=== PATIENT | female | born 1965 | race Caucasian/White ===

== ENCOUNTER 2016-09-27 09:33 | Emergency (ER) | payer BC ==
[~2016-09-27] VITALS: Ht 172.7 cm; Wt 100.0 kg
[2016-09-27 09:36] VITALS: TEMP 36.6; Ht 172.7 cm; Wt 100.0 kg
[2016-09-27] MEDS ORDERED: IBUP-103 PO (09:50)
--- NOTE | 2016-09-27 10:11 | EMERGENCY ROOM VISIT NOTE ---
History Report prepared by Marj: Hollis Amaro Under the Supervision of: Dr. Munir Ovalle M.D. First contact with patient: 09:57 Chief Complaint: FOOT PAIN Stated Complaint: FALL History of Present Illness The patient is a 51 year old female who presents to the Emergency Room with complaints of sudden right foot pain starting prior to arrival. The patient states that she tripped earlier, and her foot stayed planted, and it twisted. The patient states that it hurts mostly on the lateral aspect of the foot. The patient denies using any blood thinners or recent antibiotics. She additionally states that she takes Advil every day. Source of History: patient Onset: prior to arrival Position: foot (right) Timing: other (sudden) Review of Systems See HPI for pertinent positives & negatives. A total of 6 systems reviewed and were otherwise negative. Past Medical & Surgical Medical Problems: (1) Ovarian cyst Family History Diabetes mellitus FHx: cancer Hypertension Social History Smoking Status: Never Smoker Marital Status: Housing Status: lives with family Occupation Status: employed Current/Historical Medications Scheduled Ibuprofen Tab (Advil), 200 MG PO DAILY Allergies Coded Allergies: No Known Allergies (Verified , 09/27/16) Physical Exam Vital Signs Date Time Temp Pulse Resp B/P Pulse Ox O2 Delivery O2 Flow Rate FiO2 09/27/16 11:11 88 18 175/95 100 09/27/16 09:36 36.6 92 18 181/102 99 Room Air Physical Exam GENERAL: Patient is well appearing in minimal distress HEENT: No acute trauma, normocephalic atraumatic, mucous membranes moist, no nasal congestion, no scleral icterus. NECK: No stridor, no adenopathy, no meningismus, trachea is midline. LUNGS: No dyspnea. Clear to auscultation and equal bilaterally. No wheeze, no rhonchi. HEART: Regular rate and rhythm. No murmurs, rubs, gallops appreciated. EXTREMITIES: Tenderness to palpation over the proximal lateral right foot extending to base of right lateral malleolus. Pain with inversion of the ankle. NEUROLOGIC: Alert and oriented, no acute motor or sensory deficits, no focal weakness, cranial nerves grossly intact. SKIN: No rash, no jaundice, no diaphoresis. Medical Decision & Procedures ER Provider Diagnostic Interpretation: X ray results are stated below per my interpretation and the radiologist's interpretation. RIGHT FOOT MIN 3 VIEWS ROUTINE CLINICAL HISTORY: Right foot pain status post trauma COMPARISON: None. DISCUSSION: No fractures or dislocations are visualized. There is no evidence for soft tissue swelling. IMPRESSION: No fractures identified. Electronically signed by: Wiley Middleton M.D. 09/27/2016 10:43 AM Dictated Date/Time: 09/27/2016 10:42 AM RIGHT ANKLE MIN 3 VIEWS ROUTINE CLINICAL HISTORY: Right ankle pain status post trauma COMPARISON: None. DISCUSSION: No acute fractures are visualized. The ankle mortise appears intact. There is a corticated bony density adjacent to medial malleolar tip. This is felt to be old. There is no evidence for soft tissue swelling. There is a tiny Achilles insertional spur IMPRESSION: No acute fractures or dislocations identified. Electronically signed by: Wiley Middleton M.D. 09/27/2016 10:42 AM Dictated Date/Time: 09/27/2016 10:41 AM ED Course 0957: The patient was evaluated in room B11. A complete history and physical exam was performed. 1103: Reevaluated the patient. Discussed results and discharge instructions: She verbalized understanding and agreement. The patient is ready for discharge. Medical Decision Differential: Fracture, Dislocation, Sprain 51 yr old female arrives with complaint of right lateral ankle/foot pain. TTP. Consistent with inversion injury resulting in ligamentous injury without fracture (xray clear). No other injuries and knee stable. Ankle brace, crutches, RICE. Follow up with PCP. RTED if worsening or other concerns. Impression Primary Impression: Right ankle sprain Scribe Attestation The scribe's documentation has been prepared under my direction and personally reviewed by me in its entirety. I confirm that the note above accurately reflects all work, treatment, procedures, and medical decision making performed by me. Departure Information Dispostion Home / Self-Care Referrals Benson England M.D. (PCP) Forms HOME CARE DOCUMENTATION FORM, IMPORTANT VISIT INFORMATION Patient Instructions Ankle Sprain, My [facility] Problem Qualifiers Primary Impression: Right ankle sprain Encounter type: initial encounter Involved ligament of ankle: unspecified ligament Qualified Codes: S93.401A - Sprain of unspecified ligament of right ankle, initial encounter
--- NOTE | 2016-09-27 10:43 | DIAGNOSTIC IMAGING REPORT ---
RIGHT ANKLE MIN 3 VIEWS ROUTINE CLINICAL HISTORY: Right ankle pain status post trauma COMPARISON: None. DISCUSSION: No acute fractures are visualized. The ankle mortise appears intact. There is a corticated bony density adjacent to medial malleolar tip. This is felt to be old. There is no evidence for soft tissue swelling. There is a tiny Achilles insertional spur IMPRESSION: No acute fractures or dislocations identified. Electronically signed by: Wiley Middleton M.D. 09/27/2016 10:42 AM Dictated Date/Time: 09/27/2016 10:41 AM
--- NOTE | 2016-09-27 10:44 | DIAGNOSTIC IMAGING REPORT ---
RIGHT FOOT MIN 3 VIEWS ROUTINE CLINICAL HISTORY: Right foot pain status post trauma COMPARISON: None. DISCUSSION: No fractures or dislocations are visualized. There is no evidence for soft tissue swelling. IMPRESSION: No fractures identified. Electronically signed by: Wiley Middleton M.D. 09/27/2016 10:43 AM Dictated Date/Time: 09/27/2016 10:42 AM
[2016-09-27 11:11] VITALS: BP 175/95; PULSE 88; O2SAT 100
== END 2016-09-27 11:13 | disposition home or self-care (01) ==
LOC: C.EDB 09:35
DX: S93.401A Sprain of unspecified ligament of right ankle, initial encounter (principal); X50.1XXA Overexertion from prolonged static or awkward postures, initial encounter; W18.40XA Slipping, tripping and stumbling without falling, unspecified, initial encounter; Z83.3 Family history of diabetes mellitus; Z82.49 Family history of ischemic heart disease and other diseases of the circulatory system

== ENCOUNTER 2017-11-04 11:25 | Observation (INO) | payer BC, OTHER ==
[~2017-11-04] VITALS: Ht 172.7 cm; Wt 100.4 kg
[~2017-11-04 11:25] MED LIST: IBUP-103 PO
[2017-11-04] MEDS ORDERED: DOXY25TA8 PO (11:50)
[2017-11-04 12:11] LABS: BASO % 0.5 %; BASO ABS # 0.04 K/uL (0-0.2); EOS % 2.1 %; EOS ABS # 0.16 K/uL (0-0.5); HEMATOCRIT 45.2 % (37-47); HEMOGLOBIN 16.2 g/dL (12.0-16.0); IG# 0.03 K/uL (0.00-0.02); LYMPH % 22.7 %; LYMPH ABS # 1.71 K/uL (1.2-3.4); MEAN CELL VOLUME 86.6 fL (80-100); MEAN CORPUSCULAR HGB CONC 35.8 g/dl (32-36); MEAN PLATELET VOLUME 10.2 fL (7.4-10.4); MONO % 9.8 %; MONO ABS # 0.74 K/uL (0.11-0.59); NEUT % 64.5 %; NEUT ABS # 4.85 K/uL (1.4-6.5); PLATELET COUNT 243 K/uL (130-400); RED CELL DISTRIBUTION WIDTH CV 12.2 % (11.5-14.5); WHITE BLOOD COUNT 7.53 K/uL (4.8-10.8)
[2017-11-04 12:23] LABS: ALBUMIN 4.2 gm/dl (3.4-5.0); ALT/SGPT 124 U/L (12-78); AST/SGOT 81 U/L (15-37); BLOOD UREA NITROGEN 15 mg/dl (7-18); CALCIUM 9.3 mg/dl (8.5-10.1); CARBON DIOXIDE 26 mmol/L (21-32); GLUCOSE 243 mg/dl (70-99); LIPASE 276 U/L (73-393); POTASSIUM 4.1 mmol/L (3.5-5.1); PTT PATIENT 26.1 SECONDS (21.0-31.0); SODIUM 138 mmol/L (136-145)
[2017-11-04 12:28] LABS: ALKALINE PHOSPHATASE 126 U/L (45-117); CKMB 5.8 ng/ml (0.5-3.6); TOTAL PROTEIN 8.2 gm/dl (6.4-8.2)
--- NOTE | 2017-11-04 12:38 | EMERGENCY ROOM VISIT NOTE ---
History Report prepared by Marj: Tamiko Byrne Under the Supervision of: Yue GarciaO. First contact with patient: 11:53 Chief Complaint: CHEST PAIN Stated Complaint: CHEST PAIN, LIGHTHEADED, PAIN BETWEEN SHOULDER AMBREEN Nursing Triage Summary: pt states chest pain upon standing left side radiating to left shoulder and left side of neck, pt states no diaphoresis or nausea noted at the time, pt denies chest pain at this time, states took ibuprofen with her lunch, at approx 1000. Pt states hx injury to left shoulder, denies cardiac hx. 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 Her pain radiated across her left shoulder, into her left shoulder blade, into her neck and back. She states that it eventually settled in between shoulder blades. Her pain lasted for about 20 minutes and then resolved on its own. Nothing made the pain worse. She sat down and states that eventually the pain resolved. She felt lightheaded while she was experiencing pain. The patient denies any current pain. She has never experienced symptoms like this before. The patient denies shortness of breath, nausea, vomiting, and abdominal pain. She denies any personal or family history of blood clots. She denies any recent travel. She denies pain or swelling in her legs. She does report that she has been under a lot of stress lately due to a recent family . She takes ibuprofen daily for arthritis. 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 Review of Systems See HPI for pertinent positives & negatives. A total of 10 systems reviewed and were otherwise negative. Past Medical & Surgical Medical Problems: (1) Abnormal liver function test (2) Ovarian cyst Surgical Problems: (1) H/O ovarian cystectomy Family History Diabetes mellitus FHx: cancer Hypertension Social History Smoking Status: Former Smoker Marital Status: Housing Status: lives with family Occupation Status: employed Current/Historical Medications Scheduled Aspirin (Aspirin EC Low Dose), 81 MG PO QAM Atorvastatin (Lipitor), 10 MG PO QAM Ibuprofen Tab (Advil), 200-400 MG PO BID Lisinopril (Zestril), 10 MG PO QAM Metformin HCl (Metformin HCl), 1 TAB OR DAILY Scheduled PRN Doxylamine Succinate (Sleep) (Unisom), 25 MG PO HS PRN for Insomnia Durable Medical Equipment Blood Glucose Monitoring Suppl (Blood Glucose Monitoring), UNIT Glucostix Blood Test Strips (RuffWire Control), UNIT Allergies Coded Allergies: No Known Allergies (Verified , 11/04/17) Physical Exam Vital Signs Date Time Temp Pulse Resp B/P (MAP) Pulse Ox O2 Delivery O2 Flow Rate FiO2 11/04/17 14:02 99 16 171/96 96 11/04/17 12:23 92 11/04/17 11:59 97 Room Air 11/04/17 11:46 97 Room Air 11/04/17 11:30 36.6 99 18 165/91 97 Room Air 11/04/17 11:30 98 Room Air Physical Exam GENERAL: Patient is awake, alert, and in no acute distress. Patient is resting comfortably and showing no signs of anxiety EYES: The conjunctivae are clear. The pupils are round and reactive. EARS, NOSE, MOUTH AND THROAT: The nose is without any evidence of any deformity. Mucous membranes are moist tongue is midline NECK: The neck is nontender and supple. RESPIRATORY: Normal respiratory effort is noted there is no evidence of wheezing rhonchi or rales CARDIOVASCULAR: Regular rate and rhythm noted there no murmurs rubs or gallops normal S1 normal S2 GASTROINTESTINAL: The abdomen is soft. Bowel sounds are present in all quadrants. Abdomen is nontender MUSCULOSKELETAL/EXTREMITIES: There is no evidence of gross deformity full range of motion is noted in the hips and shoulders SKIN: There is no obvious evidence of any rash. There are no petechiae, pallor or cyanosis noted. NEUROLOGIC: Patient is awake alert and oriented x3 Medical Decision & Procedures ER Provider Diagnostic Interpretation: Radiology results as stated below per my review and radiologist interpretation: CHEST ONE VIEW PORTABLE CLINICAL HISTORY: Atypical chest pain COMPARISON STUDY: No previous studies for comparison. FINDINGS: The cardiac and mediastinal contours are normal. There is no evidence of focal pulmonary consolidation. There is no evidence of failure. No pleural effusions are visualized.[ IMPRESSION: No active disease in the chest. Electronically signed by: Wiley Middleton M.D. 11/04/2017 12:57 PM Dictated Date/Time: 11/04/2017 12:57 PM Laboratory Results Test 11/04/17 11:50 Immature Granulocyte % (Auto) 0.4 % White Blood Count 7.53 K/uL (4.8-10.8) Red Blood Count 5.22 M/uL (4.2-5.4) Hemoglobin 16.2 g/dL (12.0-16.0) Hematocrit 45.2 % (37-47) Mean Corpuscular Volume 86.6 fL (80-100) Mean Corpuscular Hemoglobin 31.0 pg (25-34) Mean Corpuscular Hemoglobin Concent 35.8 g/dl (32-36) Platelet Count 243 K/uL (130-400) Mean Platelet Volume 10.2 fL (7.4-10.4) Neutrophils (%) (Auto) 64.5 % Lymphocytes (%) (Auto) 22.7 % Monocytes (%) (Auto) 9.8 % Eosinophils (%) (Auto) 2.1 % Basophils (%) (Auto) 0.5 % Neutrophils # (Auto) 4.85 K/uL (1.4-6.5) Lymphocytes # (Auto) 1.71 K/uL (1.2-3.4) Monocytes # (Auto) 0.74 K/uL (0.11-0.59) Eosinophils # (Auto) 0.16 K/uL (0-0.5) Basophils # (Auto) 0.04 K/uL (0-0.2) Immature Granulocyte # (Auto) 0.03 K/uL (0.00-0.02) Prothrombin Time 10.5 SECONDS (9.0-12.0) Prothromb Time International Ratio 1.0 (0.9-1.1) Activated Partial Thromboplast Time 26.1 SECONDS (21.0-31.0) Partial Thromboplastin Ratio 1.0 Estimated Average Glucose 189 mg/dl Hemoglobin A1c 8.2 % (4.5-5.6) Magnesium Level 2.3 mg/dl (1.8-2.4) Direct Bilirubin 0.1 mg/dl (0-0.2) Total Creatine Kinase 377 U/L (26-192) Creatine Kinase MB 5.8 ng/ml (0.5-3.6) Creatine Kinase MB Ratio 1.5 (0-3.0) Lipase 276 U/L (73-393) Laboratory results per my review. ECG Per My Interpretation Indication: chest pain Rate (beats per minute): 106 Rhythm: sinus tachycardia Findings: ST depression (diffuse), other (no PVCs) Comparison ECG Date: 10/12/07 Change: findings are new. ED Course 1153: The patient was evaluated in room B2. A complete history and physical examination were performed. 1325: I reassessed the patient at this time. She is feeling better and resting comfortably. I discussed the results and treatment plan with the patient. I answered all pertaining questions that she had. She expressed understanding and verbalized agreement. 1339: I spoke with JEREMIAH Estrada. We discussed the case. The patient will be evaluated by the [facility] for further management. Medical Decision Prior records/ancillary studies reviewed. Triage Nursing notes reviewed. The patient's history was concerning for chest pain. Differential diagnosis: Etiologies such as cardiac ischemia, aortic dissection, pulmonary embolism, pneumonia, pneumothorax, musculoskeletal, infections, pericarditis, myocarditis , esophageal rupture, gastrointestinal, as well as others were entertained. The patient is a 52-year-old female who presented to the emergency department for an evaluation of chest discomfort. The patient describes chest discomfort which appeared to be in the left side of her chest. She noticed some radiation to the shoulder but also had some history of shoulder musculoskeletal pain. The patient was found to have an abnormal EKG with diffuse ST segment abnormalities. Her initial cardiac biomarkers were negative. I discussed patient's laboratory and radiographic studies with her. Because of her EKG findings I discussed her [facility] They have agreed to evaluate the patient in the emergency department for further management and disposition. Medication Reconcilliation Current Medication List: was personally reviewed by me Blood Pressure Screening Patient's blood pressure: Elevated blood pressure Blood pressure disposition: Referred to PCP Consults Time Called: 1332 Consulting Physician: JEREMIAH Estrada Returned Call: [phone] I spoke with JEREMIAH Estrada. We discussed the case. The patient will be evaluated by the [facility] for further management. Impression Primary Impression: Chest pain Additional Impression: Abnormal ECG Scribe Attestation The scribe's documentation has been prepared under my direction and personally reviewed by me in its entirety. I confirm that the note above accurately reflects all work, treatment, procedures, and medical decision making performed by me. Departure Information Dispostion Being Evaluated By Hospitalist Prescriptions Glucostix Blood Test Strips (Onetouch Ultra Control) 1 Ea Strp UNIT, #30 Prov: Hayder Sinha M.D. 11/05/17 Blood Glucose Monitoring Suppl (BLOOD GLUCOSE MONITORING) 1 Kit Kit UNIT, #1 Prov: Hayder Sinha M.D. 11/05/17 Metformin HCl (Metformin HCl) 500 Mg Tab 1 TAB OR DAILY for 30 Days, #30 TAB Prov: Hayder Sinha M.D. 11/05/17 Aspirin (Aspirin EC Low Dose) 81 Mg Ectab 81 MG PO QAM for 30 Days, #30 TAB Prov: Hayder Sinha M.D. 11/05/17 Lisinopril (Zestril) 10 Mg Tab 10 MG PO QAM for 30 Days, #30 TAB Prov: Hayder Sinha M.D. 11/05/17 Atorvastatin (LIPITOR) 10 Mg Tab 10 MG PO QAM for 30 Days, #30 TAB Prov: Hayder Sinha M.D. 11/05/17 Referrals Benson England M.D. (PCP) Patient Instructions My [facility] Problem Qualifiers Primary Impression: Chest pain Chest pain type: unspecified Qualified Codes: R07.9 - Chest pain, unspecified
--- NOTE | 2017-11-04 12:58 | DIAGNOSTIC IMAGING REPORT ---
CHEST ONE VIEW PORTABLE CLINICAL HISTORY: Atypical chest pain COMPARISON STUDY: No previous studies for comparison. FINDINGS: The cardiac and mediastinal contours are normal. There is no evidence of focal pulmonary consolidation. There is no evidence of failure. No pleural effusions are visualized.[ IMPRESSION: No active disease in the chest. Electronically signed by: Wiley Middleton M.D. 11/04/2017 12:57 PM Dictated Date/Time: 11/04/2017 12:57 PM
[2017-11-04] MEDS ORDERED: ONDANSETRON INJ 2 MG/ML 2 ML VIAL IV PRN (14:15)
[2017-11-04] MEDS ORDERED: ACETAMINOPHEN 325 MG TAB PO PRN (14:15)
[2017-11-04] MEDS ORDERED: NITROGLYCERIN 0.4 MG SL PER TAB CHARGE SL PRN (14:15)
[2017-11-04] MEDS ORDERED: ASPIRIN 325 MG ECTAB PO ONE (14:15)
[2017-11-04 14:16] VITALS: O2SAT 96; BMI 33.9
[2017-11-04 14:22] LABS: HEMOGLOBIN A1C 8.2 % (4.5-5.6)
[2017-11-04] MEDS ORDERED: GLUCOSE 40% GEL 15 GM TUBE PO PRN (14:30)
[2017-11-04] MEDS ORDERED: GLUCAGON FOR INJ 1 MG VIAL SQ PRN (14:30)
[2017-11-04] MEDS ORDERED: DEXTROSE 50% 50 ML SYR IV PRN (14:30)
[2017-11-04] MEDS ORDERED: GLUCOSE 10 TABS/TUBE PO PRN (14:30)
[2017-11-04 15:12] VITALS: O2SAT 96
[2017-11-04] MEDS ORDERED: IV FLUIDS COMPLETED PRN (15:15)
--- NOTE | 2017-11-04 15:21 | DIAGNOSTIC IMAGING REPORT ---
GALLBLADDER-ABD LIMITED CLINICAL HISTORY: 52 years-old Female presenting with elevated LFTs. TECHNIQUE: Real-time grayscale and limited color Doppler ultrasound imaging of the abdomen limited to the right upper quadrant was performed. COMPARISON: None. FINDINGS: Pancreas: Visualized portions of the pancreatic head and body normal. Liver: Markedly hyperechogenic parenchyma with obscuration of the right hemidiaphragm, likely indicating marked hepatic steatosis. The liver measures 18.7 cm in maximal sagittal dimension. No sonographic evidence of hepatic mass. Main portal vein patent with normal directional flow. Biliary: No intrahepatic biliary ductal dilatation. Common bile duct measures up to 5 mm in diameter. Gallbladder: No evidence of gallstones, gallbladder wall thickening, gallbladder distention, or pericholecystic fluid or inflammatory change. Right kidney: Normal in appearance. No hydronephrosis. Ascites: None. Other: None. IMPRESSION: 1. Hepatic steatosis. Correlate with liver function tests to exclude steatohepatitis as a cause for abdominal pain. 2. No cholelithiasis or biliary ductal dilatation. Electronically signed by: Vamshi Douglas M.D. 11/04/2017 3:20 PM Dictated Date/Time: 11/04/2017 3:19 PM
[2017-11-04 15:22] VITALS: BP 175/98; PULSE 87; TEMP 36.9; O2SAT 98
--- NOTE | 2017-11-04 15:30 | History and Physical ---
History & Physical Date & Time of Service: Nov 04, 2017 ~ 13:30 Chief Complaint: Chest pain Primary Care Physician: Benson England M.D. History of Present Illness 52-year-old female who presents to the ED with a chief complaint of chest pain. Patient reports she was at work whenever she bent over to get something from under the sink and she developed sudden onset of left-sided chest pain with radiation into the left shoulder and in between her shoulder blades. She describes the pain as an uncomfortable ache. She rates the pain as a 6/10. She also had associated lightheadedness. Symptoms lasted for approximately 30 minutes and resolve on their own. She denies any associated diaphoresis, shortness of breath, or nausea. No lower extremity edema or orthopnea. Patient does report under being a lot of stress recently due to the unexpected of her [id number]. Otherwise patient has been feeling well recently. She denies abdominal pain, vomiting, and diarrhea. No dizziness or syncopal events. She denies fever and chills. No urinary symptoms. In the ED, patient' s initial troponin is negative and EKG shows less than [address] depressions in the anterior and lateral leads. Blood glucose is found to be elevated with an A1c of 8.2. Past Medical/Surgical History Medical Problems: (1) Abnormal liver function test Status: Chronic Surgical Problems: (1) H/O ovarian cystectomy Status: Chronic Family History FH: atrial fibrillation FATHER FH: diabetes mellitus FATHER FH: lung cancer FATHER FH: stomach cancer MOTHER Social History Smoking Status: Never Smoker Alcohol Use: occasionally Marital Status: Immunizations History of Tetanus Vaccine?: Yes Tetanus Immunization Date: Jan 26, 2008 Allergies Coded Allergies: No Known Allergies (Verified , 11/04/17) Home Medications Scheduled Ibuprofen Tab (Advil), 200-400 MG PO BID Scheduled PRN Doxylamine Succinate (Sleep) (Unisom), 25 MG PO HS PRN for Insomnia Review of Systems ROS per HPI, all other systems reviewed and negative Physical Exam Vital Signs Date Time Temp Pulse Resp B/P (MAP) Pulse Ox O2 Delivery O2 Flow Rate FiO2 11/04/17 14:16 96 Room Air 11/04/17 14:02 99 16 171/96 96 11/04/17 12:23 92 11/04/17 11:59 97 Room Air 11/04/17 11:46 97 Room Air 11/04/17 11:30 36.6 99 18 165/91 97 Room Air 11/04/17 11:30 98 Room Air General Appearance: WD/WN, no apparent distress Head: normocephalic, atraumatic Eyes: normal inspection, EOMI, sclerae normal ENT: hearing grossly normal, + pertinent finding (Mucous membranes moist) Neck: supple, no JVD, trachea midline Respiratory/Chest: lungs clear, normal breath sounds, no respiratory distress Cardiovascular: regular rate, rhythm, no edema, normal peripheral pulses Abdomen/GI: normal bowel sounds, non tender, soft, no organomegaly Extremities/Musculoskelatal: normal inspection, no calf tenderness, normal capillary refill Neurologic/Psych: no motor/sensory deficits, alert, normal mood/affect, oriented x 3 Skin: normal color, warm/dry Diagnostics Laboratory Results Results Past 24 Hours Test 11/04/17 11:50 Range/Units White Blood Count 7.53 4.8-10.8 K/uL Red Blood Count 5.22 4.2-5.4 M/uL Hemoglobin 16.2 12.0-16.0 g/dL Hematocrit 45.2 37-47 % Mean Corpuscular Volume 86.6 80-100 fL Mean Corpuscular Hemoglobin 31.0 25-34 pg Mean Corpuscular Hemoglobin Concent 35.8 32-36 g/dl Platelet Count 243 130-400 K/uL Mean Platelet Volume 10.2 7.4-10.4 fL Neutrophils (%) (Auto) 64.5 % Lymphocytes (%) (Auto) 22.7 % Monocytes (%) (Auto) 9.8 % Eosinophils (%) (Auto) 2.1 % Basophils (%) (Auto) 0.5 % Neutrophils # (Auto) 4.85 1.4-6.5 K/uL Lymphocytes # (Auto) 1.71 1.2-3.4 K/uL Monocytes # (Auto) 0.74 0.11-0.59 K/uL Eosinophils # (Auto) 0.16 0-0.5 K/uL Basophils # (Auto) 0.04 0-0.2 K/uL RDW Standard Deviation 39.0 36.4-46.3 fL RDW Coefficient of Variation 12.2 11.5-14.5 % Immature Granulocyte % (Auto) 0.4 % Immature Granulocyte # (Auto) 0.03 0.00-0.02 K/uL Prothrombin Time 10.5 9.0-12.0 SECONDS Prothromb Time International Ratio 1.0 0.9-1.1 Activated Partial Thromboplast Time 26.1 21.0-31.0 SECONDS Partial Thromboplastin Ratio 1.0 Sodium Level 138 136-145 mmol/L Potassium Level 4.1 3.5-5.1 mmol/L Chloride Level 104 98-107 mmol/L Carbon Dioxide Level 26 21-32 mmol/L Anion Gap 8.0 3-11 mmol/L Blood Urea Nitrogen 15 7-18 mg/dl Creatinine 1.00 0.60-1.20 mg/dl Est Creatinine Clear Calc Drug Dose 81.1 ml/min Estimated GFR () 75.0 Estimated GFR (Non- 64.7 BUN/Creatinine Ratio 15.3 10-20 Random Glucose 243 70-99 mg/dl Estimated Average Glucose 189 mg/dl Hemoglobin A1c 8.2 4.5-5.6 % Calcium Level 9.3 8.5-10.1 mg/dl Magnesium Level 2.3 1.8-2.4 mg/dl Total Bilirubin 0.4 0.2-1 mg/dl Direct Bilirubin 0.1 0-0.2 mg/dl Aspartate Amino Transf (AST/SGOT) 81 15-37 U/L Alanine Aminotransferase (ALT/SGPT) 124 12-78 U/L Alkaline Phosphatase 126 45-117 U/L Total Creatine Kinase 377 26-192 U/L Creatine Kinase MB 5.8 0.5-3.6 ng/ml Creatine Kinase MB Ratio 1.5 0-3.0 Troponin I < 0.015 0-0.045 ng/ml Total Protein 8.2 6.4-8.2 gm/dl Albumin 4.2 3.4-5.0 gm/dl Lipase 276 73-393 U/L Diagnostic Radiology CXR IMPRESSION: No active disease in the chest. Impression Assessment and Plan CHEST PAIN -Admit to telemetry -Patient presenting with sudden onset of left-sided chest pain with radiation into the left shoulder and between her shoulder blades -Initial troponin negative, EKG shows less than [address] depression in the anterior and lateral leads -Risk factors: Overweight, newly diagnosed diabetic, possible hypertension -Give full dose aspirin now followed by 81 mg daily -Check lipid panel in morning -As needed nitro and EKG with further episodes of chest pain -Will continue to cycle cardiac enzymes and if negative will obtain stress test in the morning -Also consider stress/anxiety and GI as possible etiologies for discomfort NEWLY DIAGNOSED DIABETES -Hgb A1c 8.2 -NovoLog per protocol while hospitalized -Will need to start metformin at discharge -nurse educator consult ELEVATED BLOOD PRESSURE -No history of hypertension -Systolic blood pressures running in the 170s in the ED -Patient currently anxious and under stress; will continue to monitor blood pressures throughout the day and if they remain elevated will start patient on lisinopril ELEVATED LFTS -History of elevated LFTs in the past as per outpatient labs from 2009 -Liver ultrasound from 2009 showed fatty liver -Slight increase in LFTs today as compared to 2010 -Will check right upper quadrant ultrasound DVT PROPHYLAXIS -SQ Lovenox DISPOSITION -The patient will be placed as observation status for now until further work up is complete. Attending Note: Patient is a 52-year-old female with no significant past medical history presents with history of sudden onset of left-sided chest pain radiating to the left shoulder and between the shoulder blades which was aching type, 6/10, resolved spontaneously in 20-30 minutes, associated with dizziness. She states she is undergoing through lot of stress lately due to in her family. Physical Exam: Vitals signs as noted above General Appearance:Moderately built and nourished, no apparent distress Head: normocephalic, Atraumatic Eyes: normal inspection, EOMI, PERRL Neck: supple, Trachea midline Respiratory/Chest: Normal breath sounds, CTA Cardiovascular: S1, S2, No murmur, +Tachycardia Abdomen/GI:Soft, Non tender, Bowel sounds present Extremities/Musculoskelatal:normal inspection, no edema Neurologic/Psych:AAOX3, grossly no focal neurological deficits Skin:normal color,warm Assessment and Plan: Chest Pain: R/O ACS Risk factors: H/O Obesity and Newly diagnosed DM II Initial troponin:Negative EKG shows: ST changes in anterolateral leads CXR: Unremarkable Trend serial cardiac enzymes, repeat EKG, fasting lipid panel in AM Start Aspirin Oxygen PRN Will get Stress test in AM NPO after midnight New Diagnosis of DM II: A1C:8.2 Management as above Transaminitis: Likely 2/2 Hepatic steatosis Denies abdominal pain Check ABD USD Work up as outpatient I personally reviewed the record. Patient is interviewed and examined at bedside. Patient's care is coordinated with Kirstie Tavera COMMERCIAL INTERN. Please refer to the documentation above for details of patient's presentation and for discussion of other issues. Advanced Directives Existing Living Will: No Existing Power of Fur Drummer: No Resuscitation Status VTE Prophylaxis Will order VTE Prophylaxis: Yes
[2017-11-04 16:43] VITALS: BMI 33.9
[2017-11-04] MEDS: INSULIN ASPART 100 UNITS/ML 3 ML PEN SC SCH ×2 (17:44→20:53)
[2017-11-04] MEDS ORDERED: LABETALOL HCL IV 5 MG/ML 20ML IV PRN (18:30)
[2017-11-04 18:46] VITALS: BP 161/89; PULSE 99
[2017-11-04 19:10] VITALS: BP 134/97; PULSE 90; TEMP 36.5; O2SAT 95
[2017-11-04] MEDS ORDERED: ENOXAPARIN 40 MG/0.4 ML SYR SC SCH (21:00)
[2017-11-05 00:17] VITALS: BP 157/89; PULSE 85; TEMP 36.7; O2SAT 96
[2017-11-05 04:00] VITALS: BP 136/87; PULSE 89; TEMP 37; O2SAT 94
[2017-11-05] MEDS: INSULIN ASPART 100 UNITS/ML 3 ML PEN SC SCH (07:00)
[2017-11-05 07:11] LABS: HEMATOCRIT 45.8 % (37-47); HEMOGLOBIN 16.4 g/dL (12.0-16.0); MEAN CELL VOLUME 87.6 fL (80-100); MEAN CORPUSCULAR HEMOGLOBIN 31.4 pg (25-34); MEAN CORPUSCULAR HGB CONC 35.8 g/dl (32-36); MEAN PLATELET VOLUME 10.2 fL (7.4-10.4); PLATELET COUNT 228 K/uL (130-400); RED CELL DISTRIBUTION WIDTH CV 12.4 % (11.5-14.5); RED CELL DISTRIBUTION WIDTH SD 39.5 fL (36.4-46.3); WHITE BLOOD COUNT 8.57 K/uL (4.8-10.8)
[2017-11-05 07:29] VITALS: TEMP 36.8; O2SAT 96
[2017-11-05 07:37] VITALS: BP 166/95; PULSE 97
[2017-11-05 07:39] LABS: ALBUMIN 4.1 gm/dl (3.4-5.0); CALCIUM 9.1 mg/dl (8.5-10.1); CREATININE 0.85 mg/dl (0.60-1.20); POTASSIUM 3.9 mmol/L (3.5-5.1)
[2017-11-05 07:42] LABS: TOTAL PROTEIN 7.4 gm/dl (6.4-8.2)
--- NOTE | 2017-11-05 08:26 | Progress Note ---
Progress Note Date of Service Nov 05, 2017. Progress Note Subjective: Patient seen and examined this AM after she returned from walking the hallways with her . Patient having elevated troponins after her first two initial troponins were negative yesterday. 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 Since that time she has not been having chest pain. Physical Exam General: no acute distress Heart: regular rate, no murmur Lung: CTABL, no wheezing, breathing on room air Abdomen: soft, nontender, + bowel sounds Extremities: no edema Assessment and Plan Have placed cardiology consult for NSTEMI. EKGs reviewed did not show obvious ST changes with increases in troponins Continue to trend troponin (negative x 2 then 0.455, and 0.678) At this point, hospitalist holding off on starting heparin drip as patient is asymptomatic at this point in time Have asked cardiology service to evaluate prior to doing stress echocardiogram Newly diagnosed Diabetes mellitus with HbA1c 8.2 -on sliding scale insulin for now, trend fingerstick glucose Gallbladder ultrasound: Hepatic steatosis; No cholelithiasis or biliary ductal dilatation DVT ppx: patient on aspirin and Lovenox 40 mg daily at this time contact: [phone]
[2017-11-05] MEDS ORDERED: ASPIRIN 81 MG ECTAB PO SCH (09:00)
[2017-11-05] MEDS ORDERED: LISINOPRIL 10 MG TAB PO ONE (10:13)
[2017-11-05] MEDS ORDERED: ATORVASTATIN 10 MG TAB PO ONE (10:15)
--- NOTE | 2017-11-05 10:55 | CARDIOLOGY CONSULTATION ---
DATE OF CONSULTATION: 11/05/2017 CONSULTATION REQUESTED BY: JEREMIAH Estrada. REASON FOR CONSULTATION: Chest pain. HISTORY OF PRESENT ILLNESS: Mrs. Chavez is a very pleasant 52-year-old woman who presented to [facility] on 11/04/2017 with a complaint of left chest and shoulder pain. 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 She states that immediately before the pain started, she was reaching underneath the sink to grab a cloth after carrying a large pot. When she leaned down and reached out her left arm, she felt significant pain started at her left shoulder that then radiated from her left shoulder down into her chest and upper neck. She describes the discomfort as an intense achy sensation that was about a 7/10 on the pain scale. It was associated with some lightheadedness and nausea and an overwhelming sense of despair. She denied any associated diaphoresis or shortness of breath. The pain lasted for approximately 20 minutes and then slowly subsided on its own. It was not reproducible with motion at that time or palpation; however, the patient became concerned and came into the Emergency Department. In the Emergency Department, her EKG had some nonspecific ST segment abnormalities and her first set of troponins were negative and she was admitted to telemetry. Overnight, her troponin became slightly elevated at 0.45 and then 0.68. However, her CPK was slightly elevated as well on admission of 377. Of note, the patient does state that she has been having ongoing issues with her left shoulder. She states that is rather painful. She lays on it at night and can be rather achy, but this is the first time she has any significant chest discomfort like she did yesterday. PAST SURGICAL HISTORY: Ovarian cyst removals. MEDICAL ILLNESSES: Denies, but was found to have an elevated hemoglobin A1c on admission. FAMILY HISTORY: Denies any premature coronary artery disease or sudden cardiac . SOCIAL HISTORY: She denies any alcohol, tobacco or recreational drug use. She is . She has 2 grown children, who are in good health. 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 She does not exercise outside of work. REVIEW OF SYSTEMS: As per HPI, all other systems reviewed and negative at this time. ALLERGIES: No known drug allergies. MEDICATIONS AN OUTPATIENT: Denies. PHYSICAL EXAMINATION: VITALS: Temperature is 36.8, pulse 89, respiratory rate 12, and blood pressure 136/87. GENERAL: Awake, alert, and oriented x3 in no acute distress. HEENT: Normocephalic and atraumatic. Pupils equal, round react to light and accommodation. Extraocular muscles intact. Anicteric sclerae. Moist mucous membranes. NECK: No JVD. No bruit. CARDIOVASCULAR: Regular. No S4. Normal S1 and S2. No S3. No murmurs, rubs or gallops. PULMONARY: Clear to auscultation bilaterally. No rales, rhonchi, or wheezing. ABDOMEN: Bowel sounds x4. Soft. No rebound, guarding, or tenderness. No organomegaly. EXTREMITIES: No clubbing, cyanosis or edema. +2 pedal pulses bilaterally. SKIN: Warm and dry. A 12-lead EKG performed in the Emergency Department independently reviewed at this time shows sinus tachycardia at 106 beats per minute, normal axis, incomplete right bundle branch block, nonspecific less than 1-mm ST segment depressions in the anterior lateral leads, no significant change compared to previous study of 2008. Exercise stress echocardiogram was nonischemic. No arrhythmias. Hypertensive blood pressure response to exercise. RECOMMENDATIONS: It was my pleasure to see Mrs. Chavez in consultation today. From a cardiac standpoint, the patient was counseled given the fact that her stress test was nonischemic, her pain does not appear to be cardiac in nature. However, since she has been diagnosed with diabetes, she will require continuing her aspirin 81 mg daily with enteric coated tablets. There was started this admission. I would also start her on lisinopril 10 mg daily not only for its antihypertensive, but also its nephroprotective effects given the diagnosis of diabetes and her lipid panel, when her LDL was not uncontrolled and again, she does have diabetes, which is a coronary artery disease equivalent, so we will also start her on atorvastatin 10 mg daily and then recommend that she follow up with her primary care physician, Dr. England for further risk factor modification and a BMP will need to be drawn in 1 week after starting her lisinopril. Otherwise, it is okay to discharge the patient to home from a cardiac standpoint and I would recommend outpatient orthopedic surgery evaluation for her shoulder.
[2017-11-05 11:44] VITALS: BP 153/86; PULSE 93; TEMP 36.6; O2SAT 94
[2017-11-05] MEDS ORDERED: PERFLUTREN LIPID MICROSPHERE (DEFINITY) IV ONE (11:45)
[2017-11-05] MEDS ORDERED: LPT10 PO (13:09)
[2017-11-05] MEDS ORDERED: GLC500 OR (13:09)
[2017-11-05] MEDS ORDERED: ASPEC81 PO (13:09)
[2017-11-05] MEDS ORDERED: LSN10 PO (13:09)
[2017-11-05] MEDS ORDERED: BLOO1KIT (13:12)
[2017-11-05] MEDS ORDERED: FSTTS (13:13)
--- NOTE | 2017-11-05 13:17 | Discharge Instructions ---
Discharge Instructions Date of Service Nov 05, 2017. Admission Reason for Admission: Chest Pain Discharge Discharge Diagnosis / Problem: atypical chest pain, elevated troponins, diabetes mellitus Discharge Goals Goal(s): Improve function Activity Recommendations Activity Limitations: per Instructions/Follow-up section Shower/Bathe: no limitations . 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 Patient had 2 negative troponins before she was found to have troponins elevated 0.455, and 0.678. Patient was then evaluated by cardiology and had stress test which showed nonischemic results. Cardiology service recommended that patient be started upon discharge aspirin, lisinopril, atorvastatin because of elevated HbA1c which diagnoses new onset Diabetes Mellitus. Hospitalist medical physician also adding metformin daily as part of medication for Diabetes mellitus. Cardiology service recommends patient to follow up with primary care doctor and possible obtain outpatient orthopedic surgery evaluation for left shoulder as possible cause for the atypical chest pain Other imaging performed at the hospital Chest X ray: The cardiac and mediastinal contours are normal. There is no evidence of focal pulmonary consolidation. There is no evidence of failure. No pleural effusions are visualized. Gallbladder ultrasound: Hepatic steatosis; No cholelithiasis or biliary ductal dilatation Current Hospital Diet Patient's current hospital diet: Diabetes Type 2 Diet Discharge Diet Recommended Diet: Diabetes Type 2 Diet Pending Studies Studies pending at discharge: no Laboratory Results 11/05/17 06:55 11/05/17 06:55 Test 11/04/17 11:50 11/05/17 06:55 11/05/17 11:41 11/05/17 13:00 Immature Granulocyte % (Auto) 0.4 % White Blood Count 7.53 K/uL (4.8-10.8) Red Blood Count 5.22 M/uL (4.2-5.4) 5.23 M/uL (4.2-5.4) Hemoglobin 16.2 g/dL (12.0-16.0) Hematocrit 45.2 % (37-47) Mean Corpuscular Volume 86.6 fL (80-100) 87.6 fL (80-100) Mean Corpuscular Hemoglobin 31.0 pg (25-34) 31.4 pg (25-34) Mean Corpuscular Hemoglobin Concent 35.8 g/dl (32-36) 35.8 g/dl (32-36) Platelet Count 243 K/uL (130-400) Mean Platelet Volume 10.2 fL (7.4-10.4) 10.2 fL (7.4-10.4) Neutrophils (%) (Auto) 64.5 % Lymphocytes (%) (Auto) 22.7 % Monocytes (%) (Auto) 9.8 % Eosinophils (%) (Auto) 2.1 % Basophils (%) (Auto) 0.5 % Neutrophils # (Auto) 4.85 K/uL (1.4-6.5) Lymphocytes # (Auto) 1.71 K/uL (1.2-3.4) Monocytes # (Auto) 0.74 K/uL (0.11-0.59) Eosinophils # (Auto) 0.16 K/uL (0-0.5) Basophils # (Auto) 0.04 K/uL (0-0.2) Immature Granulocyte # (Auto) 0.03 K/uL (0.00-0.02) Prothrombin Time 10.5 SECONDS (9.0-12.0) Prothromb Time International Ratio 1.0 (0.9-1.1) Activated Partial Thromboplast Time 26.1 SECONDS (21.0-31.0) Partial Thromboplastin Ratio 1.0 Estimated Average Glucose 189 mg/dl Hemoglobin A1c 8.2 % (4.5-5.6) Magnesium Level 2.3 mg/dl (1.8-2.4) Direct Bilirubin 0.1 mg/dl (0-0.2) Total Creatine Kinase 377 U/L (26-192) Creatine Kinase MB 5.8 ng/ml (0.5-3.6) Creatine Kinase MB Ratio 1.5 (0-3.0) Lipase 276 U/L (73-393) RDW Standard Deviation 39.5 fL (36.4-46.3) RDW Coefficient of Variation 12.4 % (11.5-14.5) Anion Gap 5.0 mmol/L (3-11) Est Creatinine Clear Calc Drug Dose 95.9 ml/min Estimated GFR () 91.3 Estimated GFR (Non- 78.8 BUN/Creatinine Ratio 15.6 (10-20) Calcium Level 9.1 mg/dl (8.5-10.1) Total Bilirubin 0.6 mg/dl (0.2-1) Aspartate Amino Transf (AST/SGOT) 46 U/L (15-37) Alanine Aminotransferase (ALT/SGPT) 97 U/L (12-78) Alkaline Phosphatase 100 U/L (45-117) Total Protein 7.4 gm/dl (6.4-8.2) Albumin 4.1 gm/dl (3.4-5.0) Globulin 3.3 gm/dl (2.5-4.0) Albumin/Globulin Ratio 1.2 (0.9-2) Triglycerides Level 150 mg/dl (0-150) Cholesterol Level 159 mg/dl (0-200) HDL Cholesterol 44 mg/dl LDL Cholesterol, Calculated 85 mg/dl VLDL Cholesterol, Calculated 30 mg/dl Cholesterol/HDL Ratio 3.6 Bedside Glucose 179 mg/dl (70-90) Hemoglobin A1c Test 11/04/17 11:50 Range/Units Estimated Average Glucose 189 mg/dl Hemoglobin A1c 8.2 H 4.5-5.6 % Lipid Panel Test 11/05/17 06:55 Range/Units Triglycerides Level 150 0-150 mg/dl Cholesterol Level 159 0-200 mg/dl HDL Cholesterol 44 mg/dl Cholesterol/HDL Ratio 3.6 LDL Cholesterol, Calculated 85 mg/dl Medical Emergencies . Who to Call and When: Medical Emergencies: If at any time you feel your situation is an emergency, please call 911 immediately. . Non-Emergent Contact Non-Emergency issues call your: Primary Care Provider Call Non-Emergent contact if: you have any medication questions . . "Provider Documentation" section prepared by Hayder Sinha. .
[2017-11-05 13:27] VITALS: Ht 172.7 cm; Wt 100.4 kg
--- NOTE | 2017-11-05 13:36 | Discharge Summary ---
Discharge Summary Date of Service Nov 05, 2017. Discharge Summary Admission Date: Nov 04, 2017 at 14:05 Discharge Date: Nov 05, 2017 Principal Diagnosis: Atypical chest pain, elevated troponins, newly diagnosed Diabetes Mellitus Medication Reconciliation New Medications: Blood Glucose Monitoring Suppl (Blood Glucose Monitoring) 1 Kit Kit UNIT, #1 Glucostix Blood Test Strips (Onetouch Ultra Control) 1 Ea Strp UNIT, #30 Metformin HCl (Metformin HCl) 500 Mg Tab 1 TAB OR DAILY for 30 Days, #30 TAB Aspirin (Aspirin EC Low Dose) 81 Mg Ectab 81 MG PO QAM for 30 Days, #30 TAB Atorvastatin (Lipitor) 10 Mg Tab 10 MG PO QAM for 30 Days, #30 TAB Lisinopril (Zestril) 10 Mg Tab 10 MG PO QAM for 30 Days, #30 TAB Continued Medications: Doxylamine Succinate (Sleep) (Unisom) 25 Mg Tab 25 MG PO HS PRN for Insomnia Ibuprofen Tab (Advil) 200 Mg Tab 200-400 MG PO BID for ARTHRITIS, TAB Admission Information HPI (per Admitting provider): 52-year-old female who presents to the ED with a chief complaint of chest pain. Patient reports she was at work whenever she bent over to get something from under the sink and she developed sudden onset of left-sided chest pain with radiation into the left shoulder and in between her shoulder blades. She describes the pain as an uncomfortable ache. She rates the pain as a 6/10. She also had associated lightheadedness. Symptoms lasted for approximately 30 minutes and resolve on their own. She denies any associated diaphoresis, shortness of breath, or nausea. No lower extremity edema or orthopnea. Patient does report under being a lot of stress recently due to the unexpected of her [id number]. Otherwise patient has been feeling well recently. She denies abdominal pain, vomiting, and diarrhea. No dizziness or syncopal events. She denies fever and chills. No urinary symptoms. In the ED, patient' s initial troponin is negative and EKG shows less than [address] depressions in the anterior and lateral leads. Blood glucose is found to be elevated with an A1c of 8.2. Physical Exam (per Admitting): General Appearance: WD/WN, no apparent distress Head: normocephalic, atraumatic Eyes: normal inspection, EOMI, sclerae normal ENT: hearing grossly normal, + pertinent finding (Mucous membranes moist) Neck: supple, no JVD, trachea midline Respiratory/Chest: lungs clear, normal breath sounds, no respiratory distress Cardiovascular: regular rate, rhythm, no edema, normal peripheral pulses Abdomen/GI: normal bowel sounds, non tender, soft, no organomegaly Extremities/Musculoskelatal: normal inspection, no calf tenderness, normal capillary refill Neurologic/Psych: no motor/sensory deficits, alert, normal mood/affect, oriented x 3 Skin: normal color, warm/dry Hospital Course Patient was evaluated in the hospital after having 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 Patient had 2 negative troponins before she was found to have troponins elevated 0.455, and 0.678. Patient was then evaluated by cardiology and had stress test which showed nonischemic results. Cardiology service recommended that patient be started upon discharge aspirin, lisinopril, atorvastatin because of elevated HbA1c which diagnoses new onset Diabetes Mellitus. Hospitalist medical physician also adding metformin daily as part of medication for Diabetes mellitus. Cardiology service recommends patient to follow up with primary care doctor and possible obtain outpatient orthopedic surgery evaluation for left shoulder as possible cause for the atypical chest pain Other imaging performed at the hospital Chest X ray: The cardiac and mediastinal contours are normal. There is no evidence of focal pulmonary consolidation. There is no evidence of failure. No pleural effusions are visualized. Gallbladder ultrasound: Hepatic steatosis; No cholelithiasis or biliary ductal dilatation Total time spent on discharge = 40 minutes This includes examination of the patient, discharge planning, medication reconciliation, and communication with other providers. Discharge Instructions see above
[2017-11-05 13:42] VITALS: BP 153/86; PULSE 93; TEMP 36.6; O2SAT 94
--- NOTE | 2017-11-05 16:31 | EXERCISE STRESS ECHO ---
*NOTICE TO RECEIVING LIBERTARIAN AGENCY This information is strictly Confidential and protected under [place] law. [place] law prohibits you from making any further disclosure of this information unless further disclosure is expressly permitted by the written consent of the person to whom it pertains or is authorized by law. A general authorization for the release of medical or other information is not sufficient for this purpose. Hospital accepts no responsibility if the information is made available to any other person, INCLUDING THE PATIENT. Interpretation Summary * Name: JOHANNY ALBARADO Study Date: 11/05/2017 08:32 AM BP: 147/89 mmHg * Patient Location: C.2T\S\S239\S\2 HR: 89 * : 1965 (M/d/yyyy) Gender: Female Height: 67 in * Age: 52 yrs Ethnicity: [place] Weight: 222 lb * Ordering Physician: Kirstie Tavera * Referring Physician: Self, Referred * Performed By: Shelby Jacobs RCS * * Reason For Study: CHEST PAIN / ELEVATED TROPONIN * BSA: 2.1 m2 * -- Conclusions -- * Nonischemic exercise stress echocardiogram. * No arrhtyhmias. * Below average exercise tolerance. * Elevated BP response to exercise. * At rest, normal LV chamber size with mild concentric LVH. * Normal LV systolic function, EF 60-65%. * No segmental left ventricular wall motion abnormalities are noted. * Grade I diastolic dysfunction. * No significant valvular pathology. Procedure Details * ECHOEX, CPT #[id number] * ECHO COLOR FLOW, CPT #[id number] * ECHO DOPPLER, CPT #[id number] * A contrast injection of Definity was performed to improve assessment of LV function. * Contrast was injected into an intravenous site in the right arm. * One vial of Definity ultrasound contrast was diluted in normal saline to a total volume of 10 ml. A total of '2' ml of solution was administered during imaging. * Lot # [id number] of Definity utilized for procedure. * Expiration date NOV 19. * The attending nurse who injected the contrast agent was NURY KAM RN. Left Ventricle * The left ventricle is normal in size. * There is mild concentric left ventricular hypertrophy. * Left ventricular systolic function is normal. * No segmental left ventricular wall motion abnormalities are noted. * Ejection Fraction = 60-65%. * Resting wall motion: Normal. Stress wall motion: Appropriate increase in Left ventricular systolic function and decrease in cavity size. No stress induced segmental wall motion abnormalities. Right Ventricle * The right ventricular cavity size is normal (basal dimension <4.2 cm in right ventricular apical 4-chamber view). * The right ventricular systolic function is normal as assessed by tricuspid annular plane systolic excursion (TAPSE) (normal >1.5 cm). Atria * The left atrial size is normal. * Right atrial size is normal. * No ASD detected; PFO is not assessed. Mitral Valve * The mitral valve is normal in structure and function. Tricuspid Valve * The tricuspid valve is normal in structure and function. Aortic Valve * The aortic valve is normal in structure and function. Pulmonic Valve * The pulmonary valve is not well seen, but the Doppler examination is normal without significant regurgitation or stenosis. Great Vessels * The aortic root is normal size. Pericardium * There is no pericardial effusion. Stress Parameters * Normal baseline electrocardiogram. * No arrhythmia were noted with stress. * Stress ECG: No ST changes. No arrhythmias. * The stress portion of this study was personally supervised by the undersigned interpreting physician. * Rest heart rate was '98' BPM. * Rest blood pressure was '147/89' * Maximum heart rate achieved was 171 bpm. * Maximum heart rate was 101 % of maximum age-predicted heart rate. * Maximum blood pressure was '203/85' * Total exercise time was '06:07' * Maximum exercise MET level achieved was '7.10' METS * Maximum treadmill speed was '3.30' miles per hour. * Maximum treadmill elevation was '14.00'% grade. Left Ventricular Diastolic Function * Grade I diastolic dysfunction, (abnormal relaxation pattern). MMode 2D Measurements and Calculations IVSd 1.4 cm IVSs 1.6 cm LVIDd 3.8 cm LVIDs 2.0 cm LVPWd 1.3 cm LVPWs 1.4 cm IVS/LVPW 1.1 FS 47.2 % EDV(Teich) 60.4 ml ESV(Teich) 12.5 ml EF(Teich) 79.4 % EDV(cubed) 53.1 ml ESV(cubed) 7.8 ml EF(cubed) 85.3 % % IVS thick 14.9 % % LVPW thick 7.2 % LV mass(C)d 178.8 grams LV mass(C)dI 84.6 grams/m\S\2 LV mass(C)s 96.0 grams LV mass(C)sI 45.4 grams/m\S\2 SV(Teich) 47.9 ml SI(Teich) 22.7 ml/m\S\2 SV(cubed) 45.3 ml SI(cubed) 21.4 ml/m\S\2 Ao root diam 3.0 cm Ao root area 7.2 cm\S\2 LA dimension 3.5 cm LA/Ao 1.2 LVOT diam 2.0 cm LVOT area 3.0 cm\S\2 LVAd ap4 23.5 cm\S\2 LVLd ap4 7.0 cm EDV(MOD-sp4) 64.8 ml EDV(sp4-el) 67.4 ml LVAs ap4 13.5 cm\S\2 LVLs ap4 6.0 cm ESV(MOD-sp4) 24.5 ml ESV(sp4-el) 26.0 ml EF(MOD-sp4) 62.2 % EF(sp4-el) 61.5 % LVAd ap2 22.0 cm\S\2 LVLd ap2 6.9 cm EDV(MOD-sp2) 57.8 ml EDV(sp2-el) 59.1 ml LVAs ap2 13.8 cm\S\2 LVLs ap2 6.1 cm ESV(MOD-sp2) 25.5 ml ESV(sp2-el) 26.5 ml EF(MOD-sp2) 55.9 % EF(sp2-el) 55.2 % LVLd %diff -0.50 % EDV(MOD-bp) 61.1 ml LVLs %diff 2.0 % ESV(MOD-bp) 25.3 ml EF(MOD-bp) 58.7 % SV(MOD-sp4) 40.3 ml SI(MOD-sp4) 19.1 ml/m\S\2 SV(MOD-sp2) 32.3 ml SI(MOD-sp2) 15.3 ml/m\S\2 SV(MOD-bp) 35.9 ml SI(MOD-bp) 17.0 ml/m\S\2 SV(sp4-el) 41.5 ml SI(sp4-el) 19.6 ml/m\S\2 SV(sp2-el) 32.6 ml SI(sp2-el) 15.4 ml/m\S\2 Doppler Measurements and Calculations MV E max mer 79.3 cm/sec MV A max mer 101.9 cm/sec MV E/A 0.78 MV P1/2t max mer 96.6 cm/sec MV P1/2t 58.8 msec MVA(P1/2t) 3.7 cm\S\2 MV dec slope 481.1 cm/sec\S\2 MV dec time 0.25 sec Ao V2 max 117.7 cm/sec Ao max PG 5.5 mmHg Ao max PG (full) -30 mmHg SAMARIA(V,A) 3.7 cm\S\2 SAMARIA(V,D) 3.7 cm\S\2 LV V1 max PG 8.5 mmHg LV V1 max 146.1 cm/sec PA V2 max 118.2 cm/sec PA max PG 5.6 mmHg
[2017-11-06] MEDS ORDERED: ATORVASTATIN 10 MG TAB PO SCH (09:00)
[2017-11-06] MEDS ORDERED: LISINOPRIL 10 MG TAB PO SCH (09:00)
== END 2017-11-05 14:10 | disposition home or self-care (01) ==
LOC: C.EDB 11:26 → C.2T 14:05 → ENRESERV 14:45
PROVIDERS: ADMIT Internal Medicine; ATTEND Hospitalist
DX: R07.89 Other chest pain (principal); R79.89 Other specified abnormal findings of blood chemistry; E11.9 Type 2 diabetes mellitus without complications; Z79.899 Other long term (current) drug therapy; Z79.82 Long term (current) use of aspirin; Z98.890 Other specified postprocedural states; Z83.3 Family history of diabetes mellitus; Z82.49 Family history of ischemic heart disease and other diseases of the circulatory system; Z80.2 Family history of malignant neoplasm of other respiratory and intrathoracic organs

== ENCOUNTER → 2017-11-19 | Outpatient (CLI) | payer OTHER ==
[~2017-11-19] VITALS: Ht 171.5 cm; Wt 96.2 kg
[~2017-11-19] MED LIST changes: +ASPI-320 PO; +BLOO1KIT; +DOXY25TA8 PO; +FSTTS; +GLC500 OR; +LPT10 PO; +LSN10 PO
[2017-11-19 15:31] VITALS: Ht 171.5 cm; Wt 96.2 kg
== END | disposition home or self-care (01) ==
LOC: C.NRED 15:18
PROVIDERS: ATTEND Family Medicine
DX: E11.9 Type 2 diabetes mellitus without complications (principal)